=== PATIENT | male | born 1930 | race Caucasian/White ===

== ENCOUNTER → 2021-02-19 | Outpatient (CLI) | payer MEDICARE, BC ==
[2021-02-19 09:27] LABS: INR 2.4; PROTIME 23.8 Seconds (9.20-11.50)
== END ==
LOC: M.LAB 08:57
PROVIDERS: ATTEND Internal Medicine
DX: I48.20 Chronic atrial fibrillation, unspecified (principal); Z79.01 Long term (current) use of anticoagulants; Z86.718 Personal history of other venous thrombosis and embolism